=== PATIENT | male | born 1940 ===

== ENCOUNTER 2022-06-28 10:19 | Day surgery (SDC) | payer MEDICARE ==
[2022-06-27 12:00] VITALS: BMI 19.0
[2022-06-28] MEDS ORDERED: EPINEPHrine 1 MG/ML AMP ONE (10:47)
[2022-06-28] MEDS ORDERED: Lidocaine 1% w/Epinephrine 1:200K 30 ML VIAL ONE (10:47)
[2022-06-28] MEDS ORDERED: Bacitracin Zinc Ointment 30 gm TUBE ONE (10:48)
[2022-06-28] MEDS ORDERED: fentaNYL Citrate/PF 100 MCG/2 ML SYRINGE ONE (11:05)
[2022-06-28] MEDS ORDERED: Famotidine/PF 20 mg/2ml Vial ONE (11:05)
[2022-06-28 11:30] LABS: Hemoglobin 14.2 g/dL (14.0-18.0)
[2022-06-28 11:49] LABS: Anion Gap 13 mmol/L (10-20); BUN (Urea Nitrogen) 14 mg/dL (8.4-25.7); Calc. Creatinine Clearance 48 mL/min (70-130); Calcium 9.2 mg/dL (7.8-10.44); Carbon Dioxide 26 mmol/L (23-31); Chloride 105 mmol/L (98-107); Estimated GFR 66; Glucose 86 mg/dL (83-110); Potassium 4.3 mmol/L (3.5-5.1); Sodium 140 mmol/L (136-145)
[2022-06-28] MEDS ORDERED: Rocuronium Bromide 10 MG/ML (10ML VIAL) ONE (12:09)
[2022-06-28] MEDS ORDERED: Metoclopramide HCl 10 MG/2 ML VIAL ONE (12:09)
[2022-06-28] MEDS ORDERED: Glycopyrrolate 0.2 MG/ML 5 ML SYRINGE ONE (12:09)
[2022-06-28] MEDS ORDERED: PROPOFOL 200 MG/20 ML VIAL ONE (12:09)
[2022-06-28] MEDS ORDERED: Ondansetron PF 4 MG/2 ML Vial ONE (12:09)
[2022-06-28] MEDS ORDERED: Dexamethasone 20 MG/5 ML VIAL ONE (12:09)
[2022-06-28] MEDS ORDERED: Succinylcholine 200 MG/10 ml SYRINGE FS ONE (12:09)
[2022-06-28] MEDS ORDERED: Lidocaine 1% PF 5 ML VIAL ONE (12:09)
[2022-06-28] MEDS ORDERED: Labetalol HCl 100 MG/20 ML VIAL ONE (15:09)
[2022-06-28] MEDS ORDERED: HYDROcodone/Acetaminophen 5/325 mg Tablet ONE (16:03)
== END 2022-06-28 16:31 | disposition home or self-care (01) ==
LOC: SDC 10:19
PROVIDERS: ATTEND Specialist
PROC: 0KB30ZZ Excision of Left Neck Muscle, Open Approach (ICD-10-PCS; principal; 2022-06-28)
PROC: 0CJS8ZZ Inspection of Larynx, Via Natural or Artificial Opening Endoscopic (ICD-10-PCS; 2022-06-28)
DX: L72.0 Epidermal cyst (principal); E78.5 Hyperlipidemia, unspecified; I48.91 Unspecified atrial fibrillation; F03.90 Unspecified dementia, unspecified severity, without behavioral disturbance, psychotic disturbance, mood disturbance, and anxiety; N40.0 Benign prostatic hyperplasia without lower urinary tract symptoms; Z86.73 Personal history of transient ischemic attack (TIA), and cerebral infarction without residual deficits; Z79.01 Long term (current) use of anticoagulants; Z79.899 Other long term (current) drug therapy; Z95.0 Presence of cardiac pacemaker
CPT/HCPCS: 80048; 85014; 85018; 87070; 87102; 87205; 87206; 88304; 93005; 93010; C1713; C1776; J0171; J1100; J2405; J2704; J2710; J2765; S0028